=== PATIENT | male | born 1990 | race Caucasian/White ===

== ENCOUNTER 2021-02-11 01:39 | Emergency (ER) | payer BC, OTHER ==
[2021-02-11] MEDS ORDERED: Metoprolol Tartrate 25 MG Tab PO STA (03:15)
--- NOTE | 2021-02-11 03:17 | EDM.PDOC ---
ED HPI GENERAL MEDICAL PROBLEM - General Chief Complaint: Cardiovascular Problem Stated Complaint: HR ISSUES Time Seen by Provider: 02/11/21 01:50 Source of Information: Reports: Patient History Limitations: Reports: No Limitations - History of Present Illness INITIAL COMMENTS - FREE TEXT/NARRATIVE: Patient presented to the ED because of palpitations which started last night. He occasionally have this pounding heart beat. Denies having any dyspnea, nausea, vomiting or diaphoresis. He also c/o pleuritic chest pain, cough and cold which started 3 days ago. - Related Data Allergies Allergy/AdvReac Type Severity Reaction Status Date / Time Sulfa (Sulfonamide Allergy Cannot Verified 02/11/21 01:54 Antibiotics) Remember Home Meds: Home Meds Metoprolol Tartrate 25 mg PO DAILY PRN #30 tablet 02/11/21 [Rx] Multivit-Minerals/Folic Acid [Multivitamin Gummies] 400 mcg DAILY 02/11/21 [History] Naproxen 500 mg PO BID #15 tablet. 02/11/21 [Rx] lisinopriL [Lisinopril] 20 mg PO DAILY 02/11/21 [History] metFORMIN [Glucophage XR] 500 mg PO BIDMEALS 02/11/21 [History] Past Medical History Cardiovascular History: Reports: Hypertension Musculoskeletal History: Reports: Back Pain, Chronic, Fracture Other Musculoskeletal History: hx fx R gt toe Psychiatric History: Reports: Anxiety, Panic Attack Endocrine/Metabolic History: Reports: Diabetes, Type II Dermatologic History: Reports: Other (See Below) Other Dermatologic History: gets many boils & cysts - Infectious Disease History Infectious Disease History: Reports: Chicken Pox - Past Surgical History HEENT Surgical History: Reports: Myringotomy w Tube(s) GI Surgical History: Reports: Appendectomy, Cholecystectomy Social & Family History - Family History Family Medical History: No Pertinent Family History - Tobacco Use Tobacco Use Status *Q: Current Every Day Tobacco User Years of Tobacco use: 10 Packs/Tins Daily: 1 - Caffeine Use Caffeine Use: Reports: Coffee - Recreational Drug Use Recreational Drug Use: No ED ROS GENERAL - Review of Systems Review Of Systems: See Below Constitutional: Reports: No Symptoms HEENT: Reports: No Symptoms Respiratory: Reports: Cough Cardiovascular: Reports: Chest Pain Endocrine: Reports: No Symptoms GI/Abdominal: Reports: No Symptoms : Reports: No Symptoms Musculoskeletal: Reports: No Symptoms Skin: Reports: No Symptoms Neurological: Reports: No Symptoms Psychiatric: Reports: No Symptoms ED EXAM, GENERAL - Physical Exam Exam: See Below Exam Limited By: No Limitations General Appearance: Alert, No Apparent Distress Eye Exam: Bilateral Eye: PERRL Nose: Normal Inspection, Normal Mucosa Throat/Mouth: Normal Inspection Head: Atraumatic, Normocephalic Neck: Normal Inspection, Supple, Non-Tender, Full Range of Motion Respiratory/Chest: No Respiratory Distress, Lungs Clear, Normal Breath Sounds, No Accessory Muscle Use, Chest Non-Tender Cardiovascular: Normal Peripheral Pulses, Regular Rate, Rhythm, No Edema, Tachycardia GI/Abdominal: Normal Bowel Sounds, Soft, Non-Tender, No Organomegaly, No Distention, No Abnormal Bruit Back Exam: Normal Inspection, Full Range of Motion Extremities: Normal Inspection, Normal Range of Motion, Non-Tender, No Pedal Edema, Normal Capillary Refill Neurological: Alert, Oriented, CN II-XII Intact, Normal Cognition, Normal Gait, Normal Reflexes, No Motor/Sensory Deficits Psychiatric: Normal Affect, Normal Mood Skin Exam: Warm, Dry, Intact, Normal Color, No Rash Lymphatic: No Adenopathy #1 Interpretation EKG Date: 02/11/21 Time: 01:47 Rhythm: Other (Sinus Tach) Rate (Beats/Min): 107 [place]: Normal P-Wave: Present QRS: Normal ST-T: Normal QT: Normal MA/PQ Interval: 139 Comparison: NA - No Prior EKG EKG Interpretation Comments: Sinus Tach Course - Vital Signs Text/Narrative:: Lab/EKG result was reviewed and discussed with patient Metoprolol tartrate 25 mg PO x1 Last Recorded V/S: Last Vital Signs Temp 37.2 C 02/11/21 01:40 Pulse 90 02/11/21 02:45 Resp 15 02/11/21 02:45 BP 157/97 H 02/11/21 02:45 Pulse Ox 97 02/11/21 02:45 - Orders/Labs/Meds Orders: Active Orders 24 hr Category Date Time Status EKG 12 Lead [EK] Routine Ther 02/11/21 02:16 Ordered Labs: Laboratory Tests 02/11/21 02/11/21 02/11/21 Range/Units 02:00 02:00 02:00 WBC 9.3 (3.2-10.1) x10-3/uL RBC 4.70 (3.90-5.90) x10(6)uL Hgb 13.8 (12.9-17.7) g/dL Hct 41.8 (38.3-50.1) % MCV 89.0 (80.8-98.7) fL MCH 29.5 (27.0-33.3) pg MCHC 33.1 (28.7-35.3) g/dL RDW 13.1 (12.4-15.0) % Plt Count 239 (117-477) x10(3)uL MPV 6.7 (6.7-11.0) fL Neut % (Auto) 74.0 H (40.3-71.8) % Lymph % (Auto) 13.8 L (15.8-45.3) % [place] % (Auto) 8.9 (5.5-15.2) % Eos % (Auto) 2.8 (0.1-6.8) % Baso % (Auto) 0.5 (0.3-3.8) % Neut # (Auto) 6.9 (1.7-6.9) x10-3/uL Lymph # (Auto) 1.3 (0.5-4.5) x10-3/uL [place] # (Auto) 0.8 (0.0-1.2) x10-3/uL Eos # (Auto) 0.3 (0.0-0.6) x10-3/uL Baso # (Auto) 0.0 (0.0-0.3) x10-3/uL Sodium 141 (135-145) mmol/L Potassium 4.0 (3.5-5.3) mmol/L Chloride 102 (100-110) mmol/L Carbon Dioxide 30 (21-32) mmol/L BUN 13 (7-18) mg/dL Creatinine 1.1 (0.70-1.30) mg/dL Est Cr Clr Drug Dosing 122.63 mL/min Estimated GFR (MDRD) > 60 (>60) BUN/Creatinine Ratio 11.8 (9-20) Glucose 253 H (80-116) mg/dL Calcium 8.2 L (8.6-10.2) mg/dL Total Bilirubin 0.4 (0.1-1.3) mg/dL AST 21 (5-25) IU/L ALT 69 H (12-36) U/L Alkaline Phosphatase 62 (56-112) IU/L Troponin I 4.8 (4.0-60.3) pg/mL Total Protein 7.6 (6.0-8.0) g/dL Albumin 3.9 (3.5-5.2) g/dL Globulin 3.7 g/dL Albumin/Globulin Ratio 1.1 Departure - Departure Time of Disposition: 03:15 Disposition: Home, Self-Care 01 Condition: Good Clinical Impression: Anxiety, Palpitations, URI (upper respiratory infection), Chest wall pain Prescriptions: Metoprolol Tartrate 25 mg PO DAILY PRN #30 tablet PRN Reason: palpitations Naproxen 500 mg PO BID #15 tablet.dr Instructions: Upper Respiratory Infection, Adult, [id number], Palpitations, [id number] Referrals: PCP,Not In Area [Primary Care Provider] - Additional Instructions: Please read discharge instructions on palpitations, viral upper respiratory infection, Anxiety Drink water instead of coffee, caffeine can cause rapid heart beat and palpitations Take metoprolol tartrate 25 mg, 1-2 tablets whenever you feel that fast and pounding heart beat(Heart Rate of = or more than 100) Naproxen 500 mg twice daily for 7 days(for chest wall pain) Follow up as needed Sepsis Event Note (ED) - Evaluation Sepsis Screening Result: No Definite Risk - Focused Exam Vital Signs: Vital Signs Temp Pulse Resp BP Pulse Ox 02/11/21 02:45 90 15 157/97 H 97 02/11/21 02:30 99 17 171/99 H 98 02/11/21 02:11 96 15 172/101 H 98 02/11/21 01:55 104 H 20 141/100 H 99 02/11/21 01:40 37.2 C 108 H 20 172/102 H 99 - My Orders Last 24 Hours: My Active Orders 02/11/21 02:16 EKG 12 Lead [EK] Routine - Assessment/Plan Last 24 Hours: My Active Orders 02/11/21 02:16 EKG 12 Lead [EK] Routine
== END 2021-02-11 03:37 | disposition home or self-care (01) ==
LOC: FB.ED 01:39
DX: R07.89 Other chest pain (principal); R00.2 Palpitations; F41.9 Anxiety disorder, unspecified; J06.9 Acute upper respiratory infection, unspecified; I10 Essential (primary) hypertension; E11.9 Type 2 diabetes mellitus without complications; Z88.2 Allergy status to sulfonamides; Z79.899 Other long term (current) drug therapy; Z79.84 Long term (current) use of oral hypoglycemic drugs; Z72.0 Tobacco use
CPT/HCPCS: 36415; 80053; 84484; 85025; 93005; 99285-25; A9270-GY